=== PATIENT | male | born 1995 | race Caucasian/White ===

== ENCOUNTER 2022-01-21 19:26 | Emergency (ER) | payer OTHER ==
[~2022-01-21] VITALS: Ht 175.3 cm; Wt 158.8 kg
[2022-01-21 19:38] VITALS: BP_SYST 143
[2022-01-21] MEDS ORDERED: NOR10 PO (19:45)
[2022-01-21] MEDS ORDERED: CEPH250C PO (19:45)
[2022-01-21] MEDS ORDERED: ARIP20TA4 PO (19:45)
[2022-01-21] MEDS ORDERED: LIDOCAINE 2%, 20 ML MDV INJ ONE (23:15)
[2022-01-22] MEDS ORDERED: IBUP-1969 PO (00:42)
[2022-01-22] MEDS ORDERED: TRAM50TA2 PO (01:25)
[2022-01-22] MEDS ORDERED: CIPR500T5 PO (01:25)
[2022-01-22 01:34] VITALS: BP_SYST 132
== END 2022-01-22 01:34 | disposition home or self-care (01) ==
LOC: SED 19:26
DX: L60.0 Ingrowing nail (principal); Z79.899 Other long term (current) drug therapy
CPT/HCPCS: 99284; 11730; J2001